=== PATIENT | female | born 1940 ===

== ENCOUNTER 2017-08-30 13:12 | Emergency (ER) | payer MEDICARE, MEDICAID ==
[2017-08-30 13:19] VITALS: RESP 20
--- NOTE | 2017-08-30 14:25 | C.PDOC ---
History Of Present Illness Patient BIBA c/o chronic right knee pain that she has had for several months, pain worsened this morning. She denies falls or injuries, fever, rash, redness , sensory changes, calf pain, chest pain, or SOB. Patient has been evaluated by PMD for this pain, was told she has "arthritis". Patient has several bottles of Tylenol #3, voltaren gel, Arava that she has been using - unclear if patient is taking them as directed. Patient also states she has walker at home to assist her with ambulation. She has not yet been evaluated by orthopedics. Time Seen by Provider: 08/30/17 13:22 Chief Complaint (Nursing): Lower Extremity Problem/Injury History Per: Patient, Family History/Exam Limitations: no limitations Onset/Duration Of Symptoms: Persistent (2-3 months) Current Symptoms Are (Timing): Still Present Severity: Moderate Past Medical History Reviewed: Historical Data, Nursing Documentation, Vital Signs Vital Signs: Last Vital Signs Temp 97.8 F 08/30/17 14:45 Pulse 72 08/30/17 14:45 Resp 20 08/30/17 14:45 BP 163/77 H 08/30/17 14:45 Pulse Ox 100 08/30/17 14:45 - Medical History PMH: CAD, Deep Vein Thrombosis, Gastritis, HTN, Hypercholesterolemia Family History: States: No Known Family Hx - Social History Hx Tobacco Use: No Hx Alcohol Use: No Hx Substance Use: No - Immunization History Hx Tetanus Toxoid Vaccination: No Hx Influenza Vaccination: Yes Hx Pneumococcal Vaccination: No Review Of Systems Except As Marked, All Systems Reviewed And Found Negative. Constitutional: Negative for: Fever, Chills Cardiovascular: Negative for: Chest Pain, Palpitations Respiratory: Negative for: Cough, Shortness of Breath Gastrointestinal: Negative for: Nausea, Vomiting, Abdominal Pain Musculoskeletal: Positive for: Leg Pain (right knee pain ) Skin: Negative for: Rash Neurological: Negative for: Weakness Physical Exam - Physical Exam Appears: Well, Non-toxic, In Acute Distress (in moderate pain) Skin: Warm, Dry, No Rash Oral Mucosa: Moist Cardiovascular: Rhythm Regular Respiratory: Normal Breath Sounds, No Rales, No Rhonchi, No Wheezing Extremity: Normal ROM (decreased due to pain, but intact passive ROM), Tenderness (right knee diffuse TTP), No Calf Tenderness, Capillary Refill (< 2 sec all digits ), No Deformity, Swelling (mild swelling at right knee) Extremity: Bilateral: Atraumatic, Normal Color And Temperature Pulses: Left Dorsalis Pedis: Normal, Right Dorsalis Pedis: Normal Neurological/Psych: Oriented x3, Normal Motor, Normal Sensation Gait: Steady ED Course And Treatment O2 Sat by Pulse Oximetry: 99 (RA) Pulse Ox Interpretation: Normal - Other Rad right knee Xray X-Ray: Interpreted by Me, Viewed By Me (arthritic changes, no fx/dislocation) Progress Note: Xray of right knee ordered and reviewed. Patient given IM toradol and PO prednisone. Reevaluation Time: 14:45 Reassessment Condition: Improved (Patient reassessed, is resting comfortably and states her pain as improved. She is able to ambulate well in ED. Rx for naprosyn given. Patient instructed to follow up with PMD in 1-2 days, and with orthopedics withn 1 week. She understands she should return to ED if symptoms worsen.) - Physician Consult Information Physician Contacted: Mariela Ogden Outcome Of Conversation: Discussed patient with her PMD - she knows patient well. Patient has had Xray, MRI of right knee, is getting steroid injections in knee as well. Dr. Henning aware patient has bag full of multiple bottles of same med, and that she is likely not taking her medications as instructed. She recommends follow up in her office. Disposition Counseled Patient/Family Regarding: Studies Performed, Diagnosis, Need For Followup, Rx Given - Disposition Referrals: Mariela Ogden MD [Non-Staff] - [facility] [place] [Outside] Disposition: HOME/ ROUTINE Disposition Time: 14:45 Condition: STABLE Additional Instructions: SEGUIMIENTO CON ROBERTS MDICO EN 1-2 SANDOVAL USE MEDICAMENTOS SEGN SE INDICA REGRESE AL JEANNETTE DE EMERGENCIA SI LOS SNTOMAS EMPEORAN Prescriptions: Naproxen 375 mg PO BID PRN #20 tablet PRN Reason: pain Instructions: Osteoarthritis (ED), Knee Pain (ED) Forms: [facility] (Maltese) Print Language: UKRAINIAN - POA Present On Arrival: None - Clinical Impression Clinical Impression: Right knee pain, Chronic pain, Osteoarthritis
[2017-08-30 14:48] VITALS: BP 163/77; PULSE 72; TEMP 97.8
--- NOTE | 2017-08-30 17:17 | RAD ---
PROCEDURE: Right Knee Radiographs. HISTORY: right knee pain COMPARISON: None. FINDINGS: BONES: No acute fracture or destructive bony lesion identified. JOINTS: No subluxation or dislocation. There is significant medial femoral tibial compartment narrowing compatible with degenerative joint disease. Cortical sclerosis accompanies this pattern. JOINT EFFUSION: None. OTHER FINDINGS: None. IMPRESSION: Degenerative joint disease. No acute fracture dislocation identified.
[2017-09-01 16:35] VITALS: O2SAT 99
== END 2017-08-30 14:57 | disposition home or self-care (01) ==
LOC: C.ER 13:12
DX: M17.11 Unilateral primary osteoarthritis, right knee (principal); M25.561 Pain in right knee; G89.29 Other chronic pain; E78.00 Pure hypercholesterolemia, unspecified; I10 Essential (primary) hypertension; I25.10 Atherosclerotic heart disease of native coronary artery without angina pectoris; Z86.718 Personal history of other venous thrombosis and embolism
CPT/HCPCS: 73562; 96372; 99285; J1885